=== PATIENT | female | born 1955 | race Caucasian/White ===

== ENCOUNTER → 2023-01-22 10:46 | Outpatient (CLI) | payer MEDICARE, SELFPAY ==
--- NOTE | ~2023-01-22 | XR_ITS ---
EXAMINATION: XR abdomen/kub 1V INDICATION: Left ureteral stone TECHNIQUE: Supine views of the abdomen were obtained on 2 radiographs. COMPARISON: None FINDINGS: No urolithiasis is identified. The bowel gas pattern is normal. The visualized lung bases a re clear. There is mild lumbar spondylosis. IMPRESSION: 1. No urolithiasis is identified. Reviewed, dictated and finalized at location B. [facility]
--- NOTE | ~2023-01-22 | US_ITS ---
EXAMINATION: US retroperitoneal comp DATE: 01/22/2023 11:08 INDICATION: Left ureteral stone TECHNIQUE: Multiple grayscale and Doppler ultrasound images of the kidneys were obtained. COMPARISON: None. FINDINGS: The right kidney measures 11.5 x 4.7 x 5.5 cm. The left kidney measures 11.4 x 5.5 x 6.1 cm and contains a 4 mm nonobstructing stone. The kidneys demonstrate normal parenchymal echogenicity. T here is no hydronephrosis. The bladder is normal. IMPRESSION: 1. Left nephrolithiasis. Reviewed, dictated and finalized at location B. [facility] IMPRESSION: 1. Left nephrolithiasis.
== END ==
PROVIDERS: PCP Nurse Practitioner Family; Visit Provider Physician Assistant
DX: N20.0 Calculus of kidney (principal)
CPT/HCPCS: 74018; 76770

== ENCOUNTER 2023-07-21 08:18 | Outpatient (CLI) | payer MEDICARE, SELFPAY ==
--- NOTE | ~2023-07-21 | CT_ITS ---
Non-contrast CT scan of the Abdomen and Pelvis Clinical indication: Right flank pain Technique: 2.5 mm axial scans were obtained through the abdomen and pelvis without intravenous or or al contrast. Dose reduction technique was used on this scan by utilizing automated exposure control a nd iterative reconstruction technique. The dose-length product (DLP) was 1153.22 mGy-cm. Findings: Images through the lung bases reveal no abnormalities. 2 mm nonobstructing left renal stone present. No ureteral stone or hydronephrosis on either side. The liver, spleen, pancreas, gallbladder, and right adrenal gland appear normal. 2.7 cm left adrenal myelolipoma noted. There is no aortic aneurysm. There is no evidence of bowel obstruction. Small fat-containing umbilical hernia present. Images through the pelvis were performed. There is no evidence of ascites or lymphadenopathy. Urinary bladder unremarkable. No pelvic mass seen. No ascites. Impression: 2 mm nonobstructing left renal stone. 2.7 cm left adrenal myelolipoma. Small fat-containing umbilical hernia. Reviewed, dictated and finalized at [facility]. Impression: 2 mm nonobstructing left renal stone. 2.7 cm left adrenal myelolipoma. Small fat-containing umbilical hernia.
== END 2023-07-21 08:19 ==
LOC: GOSHIMG 08:19
PROVIDERS: PCP Physician Assistant; Visit Provider Physician Assistant
DX: K42.9 Umbilical hernia without obstruction or gangrene (principal); N20.0 Calculus of kidney; D35.02 Benign neoplasm of left adrenal gland
CPT/HCPCS: 74176

== ENCOUNTER 2024-04-12 00:35 | Day surgery (SDC) | payer MEDICARE, SELFPAY ==
[2024-04-01 11:15] VITALS: BMI 37.0
[2024-04-12 08:27] VITALS: BP 178/81; PULSE 79; RESP 18; TEMP 36.3; O2SAT 98
[2024-04-12] MEDS: LACTATED RINGERS 1,000 ML 150 ML IV CONT (08:36)
--- NOTE | 2024-04-12 08:48 | WPDANESEPPF ---
Anes - Initial Pre Proc Eval Procedure: Operation Date: 04/12/24 10:00 Proposed Procedures p Screening Colonoscopy - Jhonatan Hopkins MD Date/Time: 04/12/24 08:48 Surgeon: Jhonatan Hopkins MD Pre Op Diagnosis: screening colon Patient Data Age: 68 Gender: F Height: 1.68 m Weight: 106.9 kg Last Vital Signs Temp 36.3 C L 04/12/24 08:27 Pulse 79 04/12/24 08:27 Resp 18 04/12/24 08:27 BP 178/81 H 04/12/24 08:27 Pulse Ox 98 04/12/24 08:27 O2 Del Method Room Air 04/12/24 08:27 Allergies Allergy/AdvReac Type Severity Reaction Status Date / Time No Known Allergies Allergy Verified 04/12/24 08:26 Home Medications ?Medication ?Instructions ?Recorded ?Confirmed ?Type lisinopril 20 mg tablet 20 mg PO DAILY 04/01/24 04/12/24 History Patient hx anesthesia problems: none Family hx anesthesia problems: none Results Review: All pre-operative results and documents have been reviewed as part of the pre-operative evaluation. [facility] Past Medical History Medical History (Updated 04/12/24 @ 08:50 by Jhonatan Hopkins MD) Colon cancer screening Obesity HTN (hypertension) Surgical History Surgical History (Updated 04/12/24 @ 08:51 by Magdiel Rolle MD) H/O arthroscopic knee surgery Social History Social History Smoking status: Never smoker Substance use type: does not use Living arrangements: with family Spiritual care concerns: No Anes - Eval Final PreProcedure Day of Procedure 04/12/24 08:48 Patient weight: obese Heart: regular rate and rhythm Lungs: clear to auscultation Airway: Mallampati scale class II Neurological: alert and oriented Last oral intake: >/= 8 hours ASA classification: II Emergent: no Anesthetic plan: proceed Anesthesia type and monitoring: general GIVS and standard monitoring Results Review: All pre-operative results and documents have been reviewed as part of the pre-operative evaluation. Informed Consent: The patient's anesthetic plan and its attendant risks and benefits were discussed with the patient/family/POA. Questions were solicited and answers provided to the satisfaction of the patient/family/POA.
--- NOTE | 2024-04-12 08:49 | PM.HPGS ---
History of Present Illness History of Present Illness Consent: Risks, benefits, and alternatives have been discussed and questions answered. Patient agrees to proceed with procedure. Chief complaint: screening colon Narrative: Jocelyne Rojas is a 68 year old female here for first screening colonoscopy Review of Systems Review of Systems: All systems reviewed & are unremarkable except as noted in HPI and below PMFSH Past Medical History Medical History (Updated 04/12/24 @ 08:50 by Jhonatan Hopkins MD) Colon cancer screening Obesity HTN (hypertension) Social History Social History Smoking status: Never smoker Substance use type: does not use Living arrangements: with family Spiritual care concerns: No Meds Home Medications and Allergies Home Medications ?Medication ?Instructions ?Recorded ?Confirmed ?Type lisinopril 20 mg tablet 20 mg PO DAILY 04/01/24 04/12/24 History Allergies Allergy/AdvReac Type Severity Reaction Status Date / Time No Known Allergies Allergy Verified 04/12/24 08:26 Vital Signs Vital Signs - 24 hr 04/12/24 08:27 Temperature 97.3 F L Pulse Rate 79 Respiratory Rate 18 Blood Pressure 178/81 H Pulse Oximetry 98 Oxygen Delivery Room Air Exam Const: General: comfortable and no acute distress HENMT: Face/Nose/Sinus: Normal nares present Eyes: General: appearance normal, both eyes and all related structures Neck: Neck: no JVD Resp: Auscultation: clear to auscultation bilaterally Cardio: Rate: regular rate Rhythm: regular rhythm GI: Inspection: non-distended GI Palp: Yes Soft to palpation Skin: General skin exam: normal color Neuro: General: gait normal Speech: normal speech Extrem: General: normal to inspection Psych: Mental Status: mental status grossly normal Assessment and Plan Assessment and plan (1) Colon cancer screening: Code(s): Z12.11 - Encounter for screening for malignant neoplasm of colon Status: Acute Assessment and Plan: colonoscopy
[2024-04-12 09:15] VITALS: BP 159/65; PULSE 76; RESP 19; O2SAT 96
[2024-04-12 09:25] VITALS: BP 126/58; PULSE 62; RESP 19; O2SAT 97
[2024-04-12 09:35] VITALS: BP 127/68; PULSE 63; RESP 18; O2SAT 100
== END 2024-04-12 09:43 | disposition home or self-care (01) ==
PROVIDERS: PCP Family Medicine; Visit Provider Internal Medicine Gastroenterology
PROC: 0DJD8ZZ Inspection of Lower Intestinal Tract, Via Natural or Artificial Opening Endoscopic (ICD-10-PCS; CPT 45378; principal; 2024-04-12 10:00)
DX: Z12.11 Encounter for screening for malignant neoplasm of colon (principal); D12.0 Benign neoplasm of cecum; K57.30 Diverticulosis of large intestine without perforation or abscess without bleeding; K64.8 Other hemorrhoids; E66.9 Obesity, unspecified; Z68.38 Body mass index [BMI] 38.0-38.9, adult
CPT/HCPCS: 45385; 88305; J2003; J2704; J7120